=== PATIENT | female | born 1970 | race Caucasian/White ===

== ENCOUNTER → 2017-12-01 | Outpatient (CLI) | payer OTHER ==
[2017-12-01 13:05] LABS: BASO # 0.1 (0.0-0.2); BASO % 0.7 % (0.0-2.0); EOS # 0.2 (0.0-0.7); EOS % 1.8 % (0-4.0); GRAN # 6.8 (1.4-6.5); GRAN % 67.4 % (42.2-75.2); LYMPH # 2.3 (1.2-3.4); MEAN CELL VOLUME 90 fl (80.0-100.0); MEAN CORPUSCULAR HGB CONC 32 g/dl (33.0-37.0); MEAN PLATELET VOLUME 8.5 fl (7.4-10.4); MONO # 0.7 (0.1-0.6); MONO % 6.7 % (1.7-9.3); PLATELET COUNT 476 K/mm3 (130-400); RED BLOOD COUNT 3.82 M/mm3 (4.10-5.30); REDCELL DISTRIBUTION WIDTH-CV 13.6 % (11.5-14.5)
[2017-12-01 13:06] LABS: HEMATOCRIT 34.2 % (37.0-47.0); HEMOGLOBIN 10.9 g/dl (12.5-16.0); MEAN CORPUSCULAR HEMOGLOBIN 29 pg (27.0-31.0)
== END ==
LOC: COL.RAD 11:07
DX: D25.9 Leiomyoma of uterus, unspecified (principal)

== ENCOUNTER → 2018-01-02 | Outpatient (CLI) | payer OTHER ==
[2018-01-02 09:35] LABS: ALBUMIN 4.3 gm/dL (3.5-5.0); BILIRUBIN,TOTAL 0.2 mg/dL (0.0-1.0); CALCIUM 9.7 mg/dL (8.4-10.2); CREATININE, serum 0.65 mg/dL (0.52-1.25); TOTAL PROTEIN 7.5 gm/dL (6.4-8.2)
[2018-01-02 10:05] LABS: THYROID STIMULATING HORMONE 1.55 uIU/mL (0.465-4.680)
[2018-01-05 16:00] LABS: CHOLESTEROL RISK RATIO 2.6
== END ==
LOC: COL.LAB 08:59
DX: Z00.00 Encounter for general adult medical examination without abnormal findings (principal)

== ENCOUNTER 2018-03-28 19:35 | Emergency (ER) | payer OTHER ==
[~2018-03-28] VITALS: Ht 157.5 cm; Wt 79.5 kg
[2018-03-28 19:42] VITALS: BP 137/74; TEMP 98.1
[2018-03-28 20:08] LABS: COLLECTION METHOD CLEAN CATCH
[2018-03-28 20:17] LABS: PH 7 (5-8); SQUAMOUS EPITHELIAL None Seen /hpf; URINE APPEARANCE Clear; URINE BACTERIA None Seen /hpf; URINE BILIRUBIN Negative (NEGATIVE); URINE BLOOD 2+ (NEGATIVE); URINE COLOR Colorless; URINE GLUCOSE Negative (NEGATIVE); URINE KETONE Negative (NEGATIVE); URINE LEUKOCYTE ESTERASE 1+ (NEGATIVE); URINE NITRATE Negative (NEGATIVE); URINE PROTEIN(semi-quant) Negative (NEGATIVE); URINE RBC 0-2 /hpf; URINE UROBILINOGEN Negative (NEGATIVE)
[2018-03-28] MEDS ORDERED: PYRIDIUM200 M1 PO (20:51)
[2018-03-28] MEDS ORDERED: CEFTIN 250250 MG/TAB PO (20:51)
[2018-03-28 20:57] VITALS: PULSE 76
[2018-03-28] MEDS ORDERED: DIFLUCAN150 MG PO (20:59)
== END 2018-03-28 21:00 | disposition home or self-care (01) ==
LOC: COL.ER 19:35
PROVIDERS: Nurse Practitioner
DX: N39.0 Urinary tract infection, site not specified (principal); Z98.51 Tubal ligation status

== ENCOUNTER 2018-12-28 21:59 | Emergency (ER) | payer OTHER ==
[~2018-12-28] VITALS: Ht 157.5 cm; Wt 77.3 kg
[~2018-12-28 21:59] MED LIST: CEFTIN 250250 MG/TAB PO; DIFLUCAN150 MG PO; PYRIDIUM200 M1 PO
[2018-12-28 22:05] VITALS: TEMP 98.2
[2018-12-28 22:44] LABS: COLLECTION METHOD CLEAN CATCH
[2018-12-28 22:52] LABS: MUCOUS Present /lpf; PH 5 (5-8); SQUAMOUS EPITHELIAL 0-2 /hpf; URINE APPEARANCE Clear; URINE BACTERIA None Seen /hpf; URINE BILIRUBIN Negative (NEGATIVE); URINE BLOOD Negative (NEGATIVE); URINE COLOR Yellow; URINE GLUCOSE Negative (NEGATIVE); URINE KETONE Negative (NEGATIVE); URINE LEUKOCYTE ESTERASE Negative (NEGATIVE); URINE NITRATE Negative (NEGATIVE); URINE PROTEIN(semi-quant) Negative (NEGATIVE); URINE RBC 0-2 /hpf; URINE UROBILINOGEN Negative (NEGATIVE)
[2018-12-28] MEDS ORDERED: MULTI VITAMINS1 TAB (23:20)
[2018-12-28] MEDS ORDERED: SINGULAIR 110 MG/TAB PO (23:20)
[2018-12-28] MEDS ORDERED: VITAMIN D31000 IU PO (23:20)
[2018-12-29] MEDS ORDERED: FLAGYL500 MG PO (00:14)
[2018-12-29 00:24] VITALS: BP 128/82; PULSE 67
== END 2018-12-29 00:24 | disposition home or self-care (01) ==
LOC: COL.ER 21:59
PROVIDERS: Emergency Medicine
DX: N76.0 Acute vaginitis (principal); B96.89 Other specified bacterial agents as the cause of diseases classified elsewhere; Z98.51 Tubal ligation status
CPT/HCPCS: J0696

== ENCOUNTER 2019-05-05 08:47 | Emergency (ER) | payer SELFPAY ==
[~2019-05-05] VITALS: Ht 157.5 cm; Wt 75.0 kg
[~2019-05-05 08:47] MED LIST changes: +FLAGYL500 MG PO; +MULTI VITAMINS1 TAB; +SINGULAIR 110 MG/TAB PO; +VITAMIN D31000 IU PO
[2019-05-05 08:51] VITALS: BP 138/74; TEMP 97.8
[2019-05-05] MEDS ORDERED: IBU800 M1 PO (09:57)
[2019-05-05] MEDS ORDERED: FLEXERIL 1010 MG/TAB PO (09:57)
[2019-05-05] MEDS ORDERED: LIDODERM 5% PATC1 EA TP (09:57)
[2019-05-05 10:05] VITALS: PULSE 67
== END 2019-05-05 10:05 | disposition home or self-care (01) ==
LOC: COL.ER 08:47
DX: S39.012A Strain of muscle, fascia and tendon of lower back, initial encounter (principal); Z98.51 Tubal ligation status; Z98.890 Other specified postprocedural states; Z88.1 Allergy status to other antibiotic agents; W01.0XXA Fall on same level from slipping, tripping and stumbling without subsequent striking against object, initial encounter; Y92.59 Other trade areas as the place of occurrence of the external cause

== ENCOUNTER → 2019-06-14 | Outpatient (CLI) | payer OTHER ==
[~2019-06-14] MED LIST changes: +FLEXERIL 1010 MG/TAB PO; +IBU800 M1 PO; +LIDODERM 5% PATC1 EA TP
== END ==
LOC: COL.RAD 06-13 09:45
DX: S39.012A Strain of muscle, fascia and tendon of lower back, initial encounter (principal); M75.101 Unspecified rotator cuff tear or rupture of right shoulder, not specified as traumatic; M19.011 Primary osteoarthritis, right shoulder

== ENCOUNTER 2019-06-17 13:07 | Outpatient (RCR) | payer OTHER | END 2019-07-05 11:41 | disposition home or self-care (01) | LOC: WSOH 13:07 | DX: S39.012A Strain of muscle, fascia and tendon of lower back, initial encounter (principal); S46.011A Strain of muscle(s) and tendon(s) of the rotator cuff of right shoulder, initial encounter; W01.0XXA Fall on same level from slipping, tripping and stumbling without subsequent striking against object, initial encounter; Y93.01 Activity, walking, marching and hiking; Y92.513 Shop (commercial) as the place of occurrence of the external cause; Y99.0 Civilian activity done for income or pay; J45.909 Unspecified asthma, uncomplicated; Z98.51 Tubal ligation status ==

== ENCOUNTER 2019-11-18 11:06 | Day surgery (SDC) | payer SELFPAY ==
[~2019-11-18] VITALS: Ht 157.5 cm; Wt 64.5 kg
[2019-11-18] VITALS (7 sets, daily range): BP systolic 100–129; BP diastolic 56–78; PULSE 64–84; TEMP 98.2
[~2019-11-18 11:06] MED LIST changes: -MULTI VITAMINS1 TAB; +MULTI VITAMINS1 TAB PO
[2019-11-18] MEDS ORDERED: VITAMIN C500 MG PO (12:01)
[2019-11-18] MEDS ORDERED: ZYRTEC 10MG10 MG PO (12:01)
[2019-11-18] MEDS ORDERED: MOTRIN 200200 MG/TAB PO (12:02)
[2019-11-18] MEDS ORDERED: TYLENOL 500MG500 MG PO (12:02)
--- NOTE | 2019-11-18 14:18 | NUR ---
Patient arrives back from OR alert, denies pain or nausea. Patient monitor applied, vitals stable. Sling in place on left arm, patient reports left arm is numb and is unable to move left arm or fingers, capillary refill less than two seconds. Patient given water, juice and muffin. Patient's son brought to bedside.
[2019-11-18] MEDS ORDERED: NORCO 325 MG-51 TAB PO (14:47)
--- NOTE | 2019-11-18 15:00 | NUR ---
Patient complains of headache, denies pain in left wrist (still numb). Patient did eat all of her muffin and denies nausea. Will give PRN pain medication for headache.
--- NOTE | 2019-11-18 15:30 | NUR ---
Patient reports headache is much better, and states she is ready to go home.
--- NOTE | 2019-11-18 15:45 | NUR ---
Dismissal instructions gone over with patient and patient's son. Both verbalize understanding and all questions answered.
--- NOTE | 2019-11-18 15:55 | NUR ---
Patient discharged to private vehicle that her son is driving via wheelchair without any difficulties or complications. Patient leaves thanking staff for services.
== END 2019-11-18 15:55 | disposition home or self-care (01) ==
LOC: SDCO 11:06
DX: S52.552A Other extraarticular fracture of lower end of left radius, initial encounter for closed fracture (principal); S52.612A Displaced fracture of left ulna styloid process, initial encounter for closed fracture; W01.0XXA Fall on same level from slipping, tripping and stumbling without subsequent striking against object, initial encounter; J45.909 Unspecified asthma, uncomplicated; Z79.899 Other long term (current) drug therapy
CPT/HCPCS: C1713; C1769; J0690; J2250; J2704; J2795; J3010; J7120